=== PATIENT | male | born 1995 | race Caucasian/White ===

== ENCOUNTER → 2020-01-12 10:41 | Outpatient (CLI) | payer OTHER, SELFPAY ==
[2020-01-12 12:10] LABS: Add Manual Diff / Slide Review NO; Basophils Absolute Auto 100 /uL (0-100); Basophils Percent Auto 0.6 % (0-2); Eosinophils Absolute Auto 100 /uL (0-450); Eosinophils Percent Auto 0.7 % (2-4); Hematocrit 41.8 % (41-53); Hemoglobin 13.3 g/dL (13.5-17.5); Lymphocytes Absolute Auto 2100 /uL (1100-4500); Lymphocytes Percent Auto 20.6 % (25-40); Mean Corpuscular HGB Conc 31.8 % (30-36); Mean Corpuscular Volume 62.9 fL (80-100); Monocytes Absolute Auto 800 /uL (0-900); Monocytes Percent Auto 7.6 % (3-14); Neutrophils Absolute Auto 7000 /uL (1500-7000); Neutrophils Percent Auto 70.5 % (50-75); Platelet Count 318 X10^3/uL (150-400); Red Blood Cell Count 6.65 X10^6/uL (4.5-5.9); Red Cell Distribution Width 16.1 % (11.6-14.8)
[2020-01-12 12:52] LABS: Alanine Aminotransferase 17 IU/L (<50); Albumin 5.4 g/dL (3.5-5.0); Albumin Globulin Ratio 1.9 (1.0-2.8); Alkaline Phosphatase 62 U/L (38-126); Aspartate Aminotransferase 27 IU/L (17-59); BUN Creatinine Ratio 14.6 (6-22); Bilirubin Total 1.1 mg/dL (0.2-1.3); Blood Urea Nitrogen 12 mg/dL (9-20); Calcium 10.4 mg/dL (8.4-10.2); Carbon Dioxide 28 mmol/L (22-32); Chloride 101 mmol/L (98-107); Estimated Glomerular Filt Rate > 60.0 mL/min (>60); Globulin 2.9 g/dL (1.7-4.1); Glucose 92 mg/dL (70-100); HEMOLYSIS < 15 (0-50); Lipase 42 U/L (23-300); Potassium 4.8 mmol/L (3.4-5.1); Sodium 139 mmol/L (137-145); Total Protein 8.3 g/dL (6.3-8.2)
[2020-01-12 13:10] LABS: Hypochromasia 1+; Microcytosis 2+
== END ==
PROVIDERS: PCP Registered Nurse; Referring Provider Registered Nurse; Visit Provider Registered Nurse
DX: R10.32 Left lower quadrant pain (principal)
CPT/HCPCS: 36415; 80053; 83690; 85025

== ENCOUNTER → 2020-06-13 09:35 | Outpatient (CLI) | payer OTHER, MEDICAID, SELFPAY ==
[2020-06-13 11:10] LABS: Alanine Aminotransferase 19 IU/L (<50); Albumin 5.2 g/dL (3.5-5.0); Albumin Globulin Ratio 1.5 (1.0-2.8); Alkaline Phosphatase 66 U/L (38-126); Aspartate Aminotransferase 27 IU/L (17-59); BUN Creatinine Ratio 16.5 (6-22); Bilirubin Total 1.2 mg/dL (0.2-1.3); Blood Urea Nitrogen 14 mg/dL (9-20); Calcium 10.1 mg/dL (8.4-10.2); Carbon Dioxide 32 mmol/L (22-32); Chloride 101 mmol/L (98-107); Estimated Glomerular Filt Rate > 60.0 mL/min (>60); Globulin 3.4 g/dL (1.7-4.1); Glucose 81 mg/dL (70-100); HEMOLYSIS < 15 (0-50); Lipase 37 U/L (23-300); Potassium 4.7 mmol/L (3.4-5.1); Sodium 139 mmol/L (137-145); Total Protein 8.6 g/dL (6.3-8.2)
[2020-06-13 11:13] LABS: C-Reactive Protein Quant < 0.5 mg/dL (<1.0)
[2020-06-13 11:53] LABS: Free T4, Direct Thyroxine 1.19 ng/dL (0.78-2.19)
[2020-06-13 12:07] LABS: Thyroid Stimulating Hormone 0.822 uIU/mL (0.47-4.68)
[2020-06-14 16:08] LABS: Deamidated Gliadin Ab IgA 7 units (0-19); Deamidated Gliadin Ab IgG 3 units (0-19); Immunoglobulin A,Qn 170 mg/dL (90-386); t-Transglutaminase IgA <2 U/mL (0-3)
== END ==
PROVIDERS: PCP Family Medicine; Referring Provider Internal Medicine Gastroenterology; Visit Provider Internal Medicine Gastroenterology
DX: R10.12 Left upper quadrant pain (principal)
CPT/HCPCS: 36415; 80053; 82784; 83516; 83690; 84439; 84443; 86140

== ENCOUNTER → 2020-06-28 10:40 | Outpatient (CLI) | payer OTHER, MEDICAID, SELFPAY ==
[2020-06-30 13:36] LABS: Calprotectin, Stool 80 ug/g (0-120)
== END ==
PROVIDERS: PCP Family Medicine; Referring Provider Internal Medicine Gastroenterology; Visit Provider Internal Medicine Gastroenterology
DX: R10.12 Left upper quadrant pain (principal)
CPT/HCPCS: 83993